=== PATIENT | female | born 1960 | race Caucasian/White ===

== ENCOUNTER → 2017-06-23 | Outpatient (CLI) | payer BC | END | disposition home or self-care (01) | LOC: MAMMO 07:10 | DX: Z12.31 Encounter for screening mammogram for malignant neoplasm of breast (principal) ==

== ENCOUNTER → 2018-06-28 | Outpatient (CLI) | payer BC | END | disposition home or self-care (01) | LOC: MAMMO 07:17 | DX: Z12.31 Encounter for screening mammogram for malignant neoplasm of breast (principal) ==

== ENCOUNTER → 2019-08-06 | Outpatient (CLI) | payer BC | END | disposition home or self-care (01) | LOC: MAMMO 08:39 | DX: Z12.31 Encounter for screening mammogram for malignant neoplasm of breast (principal); Z78.0 Asymptomatic menopausal state ==

== ENCOUNTER → 2019-12-21 | Outpatient (CLI) | payer BC ==
[2019-12-21 07:59] LABS: BASO % 0.6 % (0.0-1.0); EOS # 0.1 10*3/uL (0.0-0.4); EOS % 2.9 % (1.0-4.0); HEMATOCRIT 43.2 % (37.0-47.0); LYMPH % 41.1 % (27.0-41.0); MEAN CELL VOLUME 93.3 fl (81.0-99.0); MEAN CORPUSCULAR HGB 31.5 pg (27.0-31.0); MEAN CORPUSCULAR HGB CONC 33.8 g/dl (33.0-37.0); MEAN PLATELET VOLUME 9.9 fl (9.6-12.3); MONO # 0.5 10*3/uL (0.1-1.0); MONO % 9.3 % (3.0-9.0); NEUT # 2.2 10*3/uL (2.3-7.9); NEUT % 46.1 % (47.0-73.0); PLATELET COUNT AUTOMATED 221 10*3/uL (130-400); RED BLOOD COUNT 4.63 10*6/uL (4.10-5.10); RED CELL DISTRI WIDTH 12.7 % (0-14.5); WHITE BLOOD COUNT 4.8 10*3/uL (4.8-10.8)
== END | disposition home or self-care (01) ==
LOC: LAB 07:33
PROVIDERS: Internal Medicine
DX: M18.0 Bilateral primary osteoarthritis of first carpometacarpal joints (principal); I10 Essential (primary) hypertension; R73.01 Impaired fasting glucose

== ENCOUNTER → 2020-08-28 | Outpatient (CLI) | payer BC | END | disposition home or self-care (01) | LOC: MAMMO 07:12 | PROVIDERS: ATTEND Internal Medicine | DX: Z12.31 Encounter for screening mammogram for malignant neoplasm of breast (principal); N64.89 Other specified disorders of breast ==

== ENCOUNTER → 2021-08-31 | Outpatient (CLI) | payer BC | END | disposition home or self-care (01) | LOC: MAMMO 00:20 | PROVIDERS: ATTEND Internal Medicine | DX: Z12.31 Encounter for screening mammogram for malignant neoplasm of breast (principal); N64.89 Other specified disorders of breast ==

== ENCOUNTER → 2022-10-18 | Outpatient (CLI) | payer OTHER | END | disposition home or self-care (01) | LOC: MAMMO 01:28 | PROVIDERS: ATTEND Internal Medicine | DX: Z12.31 Encounter for screening mammogram for malignant neoplasm of breast (principal); Z13.820 Encounter for screening for osteoporosis; M81.0 Age-related osteoporosis without current pathological fracture ==

== ENCOUNTER → 2023-11-09 | Outpatient (CLI) | payer OTHER | END | disposition home or self-care (01) | LOC: MAMMO 08:30 | PROVIDERS: ATTEND Internal Medicine | DX: Z12.31 Encounter for screening mammogram for malignant neoplasm of breast (principal) ==

== ENCOUNTER → 2024-12-27 | Outpatient (CLI) | payer OTHER | END | disposition home or self-care (01) | LOC: MAMMO 12-26 09:00 | PROVIDERS: ATTEND Internal Medicine | DX: Z12.31 Encounter for screening mammogram for malignant neoplasm of breast (principal); R92.323 Mammographic fibroglandular density, bilateral breasts ==